=== PATIENT | female | born 2005 | race Caucasian/White ===

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

== ENCOUNTER → 2023-02-02 08:29 | Outpatient (CLI) | payer OTHER, MEDICAID, SELFPAY ==
[2023-02-03 17:22] LABS: Pregnancy Test Urine Negative (Negative)
== END ==
PROVIDERS: Family Provider Physician Assistant; PCP Family Medicine; Visit Provider Physician Assistant
DX: R30.0 Dysuria (principal); N39.0 Urinary tract infection, site not specified; N89.8 Other specified noninflammatory disorders of vagina
CPT/HCPCS: 81002; 81025; 87086; 87210

== ENCOUNTER → 2023-05-02 12:23 | Outpatient (CLI) | payer OTHER, MEDICAID, SELFPAY ==
[2023-05-02 14:31] LABS: Urine N gonorrhoeae NOT DETECTED
[2023-05-02 14:33] LABS: Urine Chlamydia NOT DETECTED
== END ==
PROVIDERS: Family Provider Physician Assistant; PCP Family Medicine; Visit Provider Nurse Practitioner Family
DX: R10.9 Unspecified abdominal pain (principal); N94.9 Unspecified condition associated with female genital organs and menstrual cycle; N89.8 Other specified noninflammatory disorders of vagina
CPT/HCPCS: 81002; 87086; 87147; 87210; 87491; 87591

== ENCOUNTER → 2023-05-19 09:44 | Outpatient (CLI) | payer OTHER, MEDICAID, SELFPAY | PROVIDERS: Family Provider Physician Assistant; PCP Family Medicine; Visit Provider Family Medicine | DX: R10.2 Pelvic and perineal pain (principal); N89.8 Other specified noninflammatory disorders of vagina | CPT/HCPCS: 87210; 87220; 87491; 87563; 87591; 87798 ==

== ENCOUNTER → 2023-07-03 16:08 | Outpatient (CLI) | payer OTHER, MEDICAID, SELFPAY ==
[2023-07-03 17:04] LABS: Influenza A - CEPHEID Flu A NEGATIVE (NEGATIVE); Influenza B - CEPHEID Flu B NEGATIVE (NEGATIVE); Respiratory Syncytial Virus Negative (Negative)
[2023-07-03 17:09] LABS: COVID-19 CEPHEID 4-PLEX PCR Negative (Negative)
== END ==
PROVIDERS: Family Provider Physician Assistant; PCP Family Medicine; Visit Provider Physician Assistant Medical
DX: J02.9 Acute pharyngitis, unspecified (principal); R09.81 Nasal congestion
CPT/HCPCS: 0241U; 87070; 87147; 87880

== ENCOUNTER → 2024-03-07 18:48 | Outpatient (CLI) | payer OTHER, MEDICAID, SELFPAY | PROVIDERS: Family Provider Physician Assistant; PCP Family Medicine; Visit Provider Nurse Practitioner Family | DX: N89.8 Other specified noninflammatory disorders of vagina (principal) | CPT/HCPCS: 87086; 87210 ==

== ENCOUNTER → 2024-07-08 11:49 | Outpatient (CLI) | payer OTHER, MEDICAID, SELFPAY | PROVIDERS: Family Provider Physician Assistant; PCP Family Medicine; Visit Provider Physician Assistant Surgical | DX: J02.9 Acute pharyngitis, unspecified (principal); R05.9 Cough, unspecified; H93.8X3 Other specified disorders of ear, bilateral; R09.81 Nasal congestion | CPT/HCPCS: 87070; 87147; 87880 ==

== ENCOUNTER → 2024-10-03 11:23 | Outpatient (CLI) | payer OTHER, SELFPAY ==
[2024-10-03 12:49] LABS: Influenza A - CEPHEID Flu A NEGATIVE (NEGATIVE); Influenza B - CEPHEID Flu B NEGATIVE (NEGATIVE); Respiratory Syncytial Virus Negative (Negative)
[2024-10-03 12:52] LABS: COVID-19 CEPHEID 4-PLEX PCR Negative (Negative)
== END ==
PROVIDERS: Family Provider Physician Assistant; PCP Family Medicine; Visit Provider Physician Assistant Surgical
DX: J02.9 Acute pharyngitis, unspecified (principal)
CPT/HCPCS: 87635; 87400 ×2; 87420; 0241U; 87070; 87880

== ENCOUNTER → 2025-02-14 18:35 | Outpatient (CLI) | payer OTHER, SELFPAY | LOC: LAB 18:44 | PROVIDERS: Family Provider Physician Assistant; PCP Family Medicine; Visit Provider Student in an Organized Health Care Education/Training Program | DX: N89.8 Other specified noninflammatory disorders of vagina (principal) | CPT/HCPCS: 87210 ==

== ENCOUNTER → 2025-07-12 15:47 | Outpatient (CLI) | payer OTHER, SELFPAY | PROVIDERS: Family Provider Physician Assistant; Visit Provider Chiropractor | DX: R39.15 Urgency of urination (principal); N89.8 Other specified noninflammatory disorders of vagina | CPT/HCPCS: 87077; 87086; 87147; 87186; 87210 ==

== ENCOUNTER → 2025-09-01 16:55 | Outpatient (CLI) | payer OTHER, SELFPAY ==
[2025-09-01 18:49] LABS: Urine N gonorrhoeae NOT DETECTED
[2025-09-01 18:58] LABS: Urine Chlamydia NOT DETECTED
== END ==
PROVIDERS: Family Provider Physician Assistant; Visit Provider Chiropractor
DX: N89.8 Other specified noninflammatory disorders of vagina (principal); R30.0 Dysuria; N94.9 Unspecified condition associated with female genital organs and menstrual cycle
CPT/HCPCS: 87077; 87086; 87147; 87186; 87210; 87491; 87591